=== PATIENT | male | born 1985 | race Caucasian/White ===

== ENCOUNTER 2020-01-29 22:34 | Emergency (ER) | payer OTHER, SELFPAY ==
--- NOTE | 2020-01-29 22:36 | DI.RAD.S_ITS ---
PROCEDURE: XR CHEST 1V INDICATIONS: chest pain TECHNIQUE: One view of the chest was acquired. COMPARISON: None. FINDINGS: Surgical changes and devices: None. Lungs and pleura: Lungs are clear. No pleural effusions or pneumothorax. Mediastinum: Mediastinal contours appear normal. Heart size is normal. Bones and chest wall: No suspicious bony lesions. Overlying soft tissues appear unremarkable. IMPRESSION: No acute cardiopulmonary abnormality Comment: Final report is concordant with preliminary interpretation by [facility] Dictated by: Shmuel Hines M.D. on 01/30/2020 at 7:38 Approved by: Shmuel Hines M.D. on 01/30/2020 at 7:39
[2020-01-29 22:40] VITALS: BP 117/67; PULSE 56; RESP 14; TEMP 36.5; O2SAT 99; BMI 27.9
--- NOTE | 2020-01-29 22:51 | ED_ITS ---
HPI - Chest Pain General Chief Complaint: Chest Pain Stated Complaint: heart pains Time Seen by Provider: 01/29/20 22:40 Source: patient and family Mode of arrival: Ambulatory Limitations: no limitations History of Present Illness HPI narrative: 34-year-old male nonsmoker with noncontributory medical history presents with his in the chief complaint of central chest pain that is largely sharp and stabbing and made worse with motion and deep breath. He states that on occasion he feels a squeezing sensation in his chest as well. He states he has had these symptoms off and on for the past year but tonight his symptoms started 2-3 hours prior to his arrival long driving his car. He denies any runny nose or sore throat. He has had no fever chills nor cough. He denies any recent injury, long distance travel, history of clot. He denies any exertional symptoms and states he has had no decreased exercise tolerance. He denies any radiation of his discomfort which and is currently asymptomatic. He denies associated symptoms such as N/V, diaphoresis, dizziness, lightheadedness or other. MD complaint: chest pain Onset (ago): month(s) Duration: intermittent Onset: during rest Pain location: substernal Severity: moderate Quality: aching and sharp Pain radiation: none Relieving factors: rest Exacerbating factors: inspiration Treatments prior to arrival chest pain: none Related Data Previous Rx's Medication Instructions Recorded ketorolac 10 mg PO Q6H PRN #14 tab 01/30/20 Allergies Allergy/AdvReac Type Severity Reaction Status Date / Time No Known Drug Allergies Allergy Verified 01/29/20 22:56 Review of Systems Constitutional Constitutional: Denies chills, Denies fatigue, Denies fever(s), Denies frequent falls, Denies lethargy and Denies weakness Eyes Eyes: Denies change in vision, Denies eye discharge, Denies irritation and Denies loss of vision ENT Ears, Nose, Mouth, and Throat: Denies change in voice, Denies dizziness, Denies neck pain, Denies sore throat and Denies throat swelling Cardiovascular Cardiovascular: Reports chest pain, Denies irregular heart rhythm, Denies lightheadedness, Denies palpitations, Denies dyspnea, Denies dyspnea on exertion and Denies orthopnea Respiratory Respiratory: Denies cough, Reports pain on inspiration, Denies dyspnea, Denies dyspnea on exertion and Denies wheezing Gastrointestinal Gastrointestinal: Denies abdominal pain, Denies change in bowel habits, Denies diarrhea, Denies nausea and Denies vomiting Musculoskeletal Musculoskeletal: Denies neck pain and Denies numbness Integumentary/Breasts Skin/Breast: Denies pruritus, Denies erythema, Denies rash and Denies wounds Neurologic Neurologic: Denies behavioral changes, Denies confusion, Denies dizziness, Denies frequent falls, Denies loss of vision, Denies numbness and Denies weakness Psychiatric Psychiatric: Denies anxiety, Denies behavioral changes, Denies confusion, Denies depression, Denies homicidal ideation and Denies suicidal ideation Endocrine Endocrine: Denies fatigue, Denies flushing and Denies palpitations Hematologic/Lymphatic Hematologic/Lymphatic: Denies easy bruising Allergic/Immunologic Allergic/Immunologic: Denies urticaria, Denies throat swelling and Denies wheezing Patient History Social History Smoking Status: Never smoker Smoking Status: Never smoker alcohol intake frequency: 0-2 drinks per day Substance Use Type: does not use Exam Narrative Exam Narrative: GENERAL: [34] year old patient appears stated age. Well-nour ished, well-developed patient, in mild distress. HEAD: Atraumatic. EYES: PERLLA, EOMI ENT: No nosebleed or drainage. Patent airway NECK: Trachea midline. Non tender CARDIOVASCULAR: Regular rate and rhythm without murmurs, gallops, or rubs. No pain on palpation. RESPIRATORY: Clear to auscultation. Breath sounds equal bilaterally. No wheezes, rales, or rhonchi. GASTROINTESTINAL: Abdomen soft, non-tender, nondistended. EXTREMITIES: No edema or joint tenderness. BACK: Nontender without deformity or crepitance. No flank tenderness. NEURO: AOx3. SKIN: No rash or erythema of visible areas Initial Vital Signs Initial Vital Signs: Vital Signs Temperature 97.7 F 01/29/20 22:40 Pulse Rate 56 L 01/29/20 22:40 Respiratory Rate 14 01/29/20 22:40 Blood Pressure 117/67 01/29/20 22:40 Pulse Oximetry 99 01/29/20 22:40 Course Orders Ordered: ED Orders 01/29/20 22:36 XR chest 1V Stat EKG-12 Lead Stat 01/29/20 22:52 Complete Blood Count AUTO DIFF Stat Comprehensive Metabolic Panel Stat Lipase Stat Partial Thromboplastin Time Stat Prothrombin Time INR Stat Troponin & CK Cardiac Panel Stat 01/29/20 23:50 EKG-12 Lead Stat 01/30/20 00:39 D Dimer Stat 01/30/20 00:40 Trop I [Troponin I] Stat Vital Signs Vital signs: Vital Signs - 8 hr 01/29/20 22:40 01/29/20 23:00 01/30/20 00:22 Temperature 97.7 F Pulse Rate 56 L 57 L 52 L Respiratory Rate 14 16 15 Blood Pressure 117/67 127/71 Pulse Oximetry 99 97 97 01/30/20 00:30 01/30/20 01:00 01/30/20 01:30 Temperature Pulse Rate 54 L 52 L Respiratory Rate 13 15 15 Blood Pressure 118/59 L 126/57 L 128/56 L Pulse Oximetry 98 97 98 01/30/20 02:00 01/30/20 02:30 Temperature Pulse Rate 52 L 62 Respiratory Rate 13 14 Blood Pressure 111/59 L 113/64 Pulse Oximetry 98 98 MDM - Chest Pain Lab Data Result diagrams: 01/29/20 22:52 01/29/20 22:52 Labs: Lab Results 01/29/20 01/29/20 01/29/20 Range/Units 22:52 22:52 22:52 WBC 6.2 (4.5-11.0) X10^3/uL RBC 4.57 (4.5-5.9) X10^6/uL Hgb 13.9 (13.5-17.5) g/dL Hct 41.3 (41-53) % MCV 90.2 (80-100) fL MCH 30.5 (26-34) PG MCHC 33.8 (30-36) % RDW 12.5 (11.6-14.8) % Plt Count 182 (150-400) X10^3/uL Neut % (Auto) 48.4 L (50-75) % Lymph % (Auto) 39.7 (25-40) % [place] % (Auto) 8.9 (3-14) % Eos % (Auto) 1.8 L (2-4) % Baso % (Auto) 1.2 (0-2) % Neut # (Auto) 3000 (6006-5647) /uL Lymph # (Auto) 2500 (7890-5943) /uL [place] # (Auto) 500 (0-900) /uL Eos # (Auto) 100 (0-450) /uL Baso # (Auto) 100 (0-100) /uL PT 12.4 (10.1-12.7) SECONDS INR 1.1 (0.9-1.3) APTT 35 (26.4-36.2) SECONDS D-Dimer (<230) ng/mL Sodium 137 (137-145) mmol/L Potassium 3.9 (3.4-5.1) mmol/L Chloride 106 (98-107) mmol/L Carbon Dioxide 28 (22-32) mmol/L BUN 21 H (9-20) mg/dL Creatinine 1.38 H (0.66-1.25) mg/dL Estimated GFR 58.3 L (>60) mL/min BUN/Creatinine Ratio 15.2 (6-22) Glucose 94 (70-100) mg/dL Calcium 8.9 (8.4-10.2) mg/dL Total Bilirubin 0.6 (0.2-1.3) mg/dL AST 25 (17-59) IU/L ALT 24 (<50) IU/L Alkaline Phosphatase 65 (38-126) U/L Total Creatine Kinase 91 (55-170) U/L CK-MB (CK-2) TNP CK-MB (CK-2) Rel Index TNP Troponin I < 0.012 (0.01-0.034) ng/mL Total Protein 7.1 (6.3-8.2) g/dL Albumin 4.2 (3.5-5.0) g/dL Globulin 2.9 (1.7-4.1) g/dL Albumin/Globulin Ratio 1.4 (1.0-2.8) Lipase 195 (23-300) U/L 01/29/20 01/30/20 Range/Units 22:52 00:40 WBC (4.5-11.0) X10^3/uL RBC (4.5-5.9) X10^6/uL Hgb (13.5-17.5) g/dL Hct (41-53) % MCV (80-100) fL MCH (26-34) PG MCHC (30-36) % RDW (11.6-14.8) % Plt Count (150-400) X10^3/uL Neut % (Auto) (50-75) % Lymph % (Auto) (25-40) % [place] % (Auto) (3-14) % Eos % (Auto) (2-4) % Baso % (Auto) (0-2) % Neut # (Auto) (8285-4317) /uL Lymph # (Auto) (8619-2806) /uL [place] # (Auto) (0-900) /uL Eos # (Auto) (0-450) /uL Baso # (Auto) (0-100) /uL PT (10.1-12.7) SECONDS INR (0.9-1.3) APTT (26.4-36.2) SECONDS D-Dimer < 200 (<230) ng/mL Sodium (137-145) mmol/L Potassium (3.4-5.1) mmol/L Chloride (98-107) mmol/L Carbon Dioxide (22-32) mmol/L BUN (9-20) mg/dL Creatinine (0.66-1.25) mg/dL Estimated GFR (>60) mL/min BUN/Creatinine Ratio (6-22) Glucose (70-100) mg/dL Calcium (8.4-10.2) mg/dL Total Bilirubin (0.2-1.3) mg/dL AST (17-59) IU/L ALT (<50) IU/L Alkaline Phosphatase (38-126) U/L Total Creatine Kinase (55-170) U/L CK-MB (CK-2) CK-MB (CK-2) Rel Index Troponin I < 0.012 (0.01-0.034) ng/mL Total Protein (6.3-8.2) g/dL Albumin (3.5-5.0) g/dL Globulin (1.7-4.1) g/dL Albumin/Globulin Ratio (1.0-2.8) Lipase (23-300) U/L ECG Data Attestation: I personally reviewed and interpreted this ECG as follows: Interpretation: 1. EKG #1 - sinus rhythm, bradycardia. No ST Elevations or depressions. No ectopy. Mild J point elevation in V2-V4, likely Benign Early Repol 2. EKG #2 - unchanged MDM Narrative Medical decision making narrative: Multiple causes of chest pain considered including NE (non ischemic EKG, trop neg x2) , PE (negative Dimer), pneumothorax, pneumonia, aortic dissection, and pleurisy. Patient reports no radiation, no diaphoresis, no provocation with exertion, and no vomiting Patient's symptoms improved over duration of stay with above-stated therapies. Findings and discharge diagnosis discussed with patient/family followed by verbalization of understanding Return precautions discussed with patient/family whom verbalize understanding. Discharge Plan Departure Patient Disposition: Home Clinical Impression: Atypical chest pain Instructions: DI for Atypical Chest Pain Activity Restrictions/Additional Instructions: *You have been diagnosed with [atypical chest pain, labs evaluating for heart attack, blood clot and other concerning diagnoses are very reassuring] *What to do: *Take medications as directed: *Follow up with your primary care provider in 2-3 days, call for an appointment. Let them know you were seen in the Emergency Department and that we ask that you be seen in follow up *Return to ER if you should have any new, worsening or concerning symptoms Prescriptions: New ketorolac 10 mg tablet 10 mg PO Q6H PRN (Reason: pain) Qty: 14 RF: 0
[2020-01-29 23:00] VITALS: BP 127/71; PULSE 57; RESP 16; O2SAT 97
[2020-01-29 23:01] LABS: Add Manual Diff / Slide Review NO; Basophils Absolute Auto 100 /uL (0-100); Basophils Percent Auto 1.2 % (0-2); Eosinophils Absolute Auto 100 /uL (0-450); Eosinophils Percent Auto 1.8 % (2-4); Hematocrit 41.3 % (41-53); Hemoglobin 13.9 g/dL (13.5-17.5); Lymphocytes Absolute Auto 2500 /uL (1100-4500); Lymphocytes Percent Auto 39.7 % (25-40); Mean Corpuscular HGB Conc 33.8 % (30-36); Mean Corpuscular Hemoglobin 30.5 PG (26-34); Mean Corpuscular Volume 90.2 fL (80-100); Monocytes Absolute Auto 500 /uL (0-900); Monocytes Percent Auto 8.9 % (3-14); Neutrophils Absolute Auto 3000 /uL (1500-7000); Neutrophils Percent Auto 48.4 % (50-75); Platelet Count 182 X10^3/uL (150-400); Red Blood Cell Count 4.57 X10^6/uL (4.5-5.9); Red Cell Distribution Width 12.5 % (11.6-14.8); White Blood Cell Count 6.2 X10^3/uL (4.5-11.0)
[2020-01-29 23:06] LABS: INR 1.1 (0.9-1.3); Prothrombin Time 12.4 SECONDS (10.1-12.7)
[2020-01-29 23:09] LABS: PTT Partial Thromboplastin Tim 35 SECONDS (26.4-36.2)
[2020-01-29 23:10] LABS: Alanine Aminotransferase 24 IU/L (<50); Albumin 4.2 g/dL (3.5-5.0); Albumin Globulin Ratio 1.4 (1.0-2.8); Alkaline Phosphatase 65 U/L (38-126); Aspartate Aminotransferase 25 IU/L (17-59); BUN Creatinine Ratio 15.2 (6-22); Bilirubin Total 0.6 mg/dL (0.2-1.3); Blood Urea Nitrogen 21 mg/dL (9-20); Calcium 8.9 mg/dL (8.4-10.2); Carbon Dioxide 28 mmol/L (22-32); Chloride 106 mmol/L (98-107); Creatine Kinase 91 U/L (55-170); Estimated Glomerular Filt Rate 58.3 mL/min (>60); Globulin 2.9 g/dL (1.7-4.1); Glucose 94 mg/dL (70-100); HEMOLYSIS 17 (0-50); Lipase 195 U/L (23-300); Potassium 3.9 mmol/L (3.4-5.1); Sodium 137 mmol/L (137-145); Total Protein 7.1 g/dL (6.3-8.2)
[2020-01-29 23:22] LABS: Troponin I < 0.012 ng/mL (0.01-0.034)
[2020-01-30 00:22] VITALS: PULSE 52; RESP 15; O2SAT 97
[2020-01-30 00:30] VITALS: BP 118/59; PULSE 54; RESP 13; O2SAT 98
[2020-01-30 01:00] VITALS: BP 126/57; RESP 15; O2SAT 97
[2020-01-30 01:10] LABS: Troponin I < 0.012 ng/mL (0.01-0.034)
[2020-01-30 01:19] LABS: D Dimer < 200 ng/mL (<230)
[2020-01-30 01:30] VITALS: BP 128/56; PULSE 52; RESP 15; O2SAT 98
[2020-01-30 02:00] VITALS: BP 111/59; PULSE 52; RESP 13; O2SAT 98
[2020-01-30 02:30] VITALS: BP 113/64; PULSE 62; RESP 14; O2SAT 98
== END 2020-01-30 02:40 | disposition home or self-care (01) ==
PROVIDERS: Emergency Provider Emergency Medicine
DX: R07.89 Other chest pain (principal); R00.1 Bradycardia, unspecified
CPT/HCPCS: 36415; 71045; 80053; 82550; 82553; 83690; 84484; 85025; 85379; 85610; 85730; 93005; 93010; 99281; 99284